=== PATIENT | female | born 1980 | race Caucasian/White ===

== ENCOUNTER 2020-10-06 17:25 | Emergency (ER) | payer BC, OTHER ==
[~2020-10-06] VITALS: Ht 165.1 cm; Wt 118.3 kg
--- NOTE | 2020-10-06 17:44 | NUR ---
PT STATES "I'M HAVING A LITTLE BIT OF CHEST TIGHTNESS. I'VE HAD A LITTEL BUT OF NUMBNESS ON MY LEGS AND TINGLING ON MY HANDS". SX STARTED IN JULY. CP STARTED 1.5 WEEKS AGO THAT IS CONSTANT MID STERNAL.
[2020-10-06 18:19] LABS: BASOPHILS % (AUTO) 1 % (0-1); EOSINOPHILS % (AUTO) 4 % (1-7); LYMPHOCYTES % (AUTO) 31 % (22-44); MEAN CORPUSCULAR HEMOGLOBIN 30.1 pg (27.0-34.8); MEAN CORPUSCULAR HGB CONC 34.2 g/dL (32.4-35.8); MEAN PLATELET VOLUME 7.5 fL (7.4-10.4); MONOCYTES % (AUTO) 4 % (2-9); NEUTROPHILS % (AUTO) 59 % (42-75); PLATELET COUNT 344 x10^3/uL (130-400); RED BLOOD COUNT 4.83 x10^6/uL (3.82-5.3)
[2020-10-06 18:26] LABS: MD NO
[2020-10-06 18:31] LABS: ALANINE AMINOTRANSFERASE 45 U/L (12-78); ALBUMIN 3.7 g/dL (3.4-5.0); ANION GAP 7 mmol/L (5-15); CHLORIDE 109 mmol/L (98-107); CHOLESTEROL, TOTAL 206 mg/dL (140-239); CREATININE 0.81 mg/dL (0.55-1.02)
--- NOTE | 2020-10-06 18:35 | NUR ---
PT RESTING ON GURNEY. HAS INTERMITTENT CHEST PAIN. VSS
[2020-10-06 18:41] LABS: ALKALINE PHOSPHATASE 48 U/L (45-117); BILIRUBIN,TOTAL 0.2 mg/dL (0.2-1.0); CHOL/HDL RATIO 5.3; HDL CHOL % 19 % (28-40); HDL CHOLESTEROL (DIRECT) 39 mg/dL (40-60); LDL CHOLESTEROL,CALCULATED 131 mg/dL (54-169); LDL/HDL RATIO 3.4 (0.5-3.0); TOTAL PROTEIN 7.4 g/dL (6.4-8.2); TRIGLYCERIDES 182 mg/dL (50-200); TROPONIN I < 0.015 ng/mL (0.000-0.045); VLDL CHOLESTEROL 36 mg/dL (0-25)
[2020-10-06 19:37] VITALS: BP 131/101
== END 2020-10-06 19:39 | disposition home or self-care (01) ==
LOC: ED 18:40
DX: R07.89 Other chest pain (principal); F17.200 Nicotine dependence, unspecified, uncomplicated
CPT/HCPCS: 36415; 80053; 80061; 82306; 84443; 84484; 85025; 93005; 99284